=== PATIENT | female | born 1995 | race Caucasian/White ===

== ENCOUNTER 2024-01-20 13:28 | Emergency (ER) | payer OTHER, SELFPAY ==
[2024-01-20 13:29] VITALS: BP 156/81; PULSE 86; RESP 14; TEMP 36.2; O2SAT 99; BMI 45.7
--- NOTE | 2024-01-20 13:45 | EDS_ITS ---
HPI History of Present Illness Chief Complaint: Complaint Narrative Narrative: Patient is a 28-year-old female who is 29 weeks is complaining of painful urination. Patient started having symptoms yesterday of urinary frequency, urgency, no burning. Patient had intermittent vague right lower back pain as well yesterday and today. Patient has no history of kidney stones. Patient has no fever or chills. Patient is approximately 17 weeks . Patient has no vaginal bleeding, discharge or odors. Patient has no other acute complaints at this time. Patient is taking vitamins. Patient is a G1, P0. Patient has an appointment with her MOLECULAR BIOLOGIST in 2 weeks. No abdominal pain, nausea, vomiting, or any other acute complaints. PFSH PFSH Medical History no medical history Home Medications aspirin 81 mg tablet,delayed release 81 mg PO DAILY 01/20/24 [History Last Taken Unknown] magnesium 200 mg tablet 200 mg PO DAILY 01/20/24 [History Last Taken Unknown] multivitamin no.47-iron fum 27 mg-folate no.1 1 mg-dha 300 mg capsule (PNV-DHA) 1 cap PO DAILY 01/20/24 [History Last Taken Unknown] nitrofurantoin monohydrate/macrocrystals 100 mg capsule 100 mg PO Q12 #14 CAPSULES 01/20/24 [Rx Last Taken Unknown] ondansetron 4 mg disintegrating tablet 4 mg PO Q8H PRN PRN Nausea #10 tabs 01/20/24 [Rx Last Taken Unknown] Allergy/AdvReac Type Severity Reaction Status Date / Time No Known Allergies Allergy Verified 01/20/24 13:32 Social History Smoking Status: Never smoker ROS ROS ED ROS Narrative REVIEW OF SYSTEMS: Unless otherwise stated in this report the patient's positive and negative responses for review of systems for constitutional, eyes, ENT, cardiovascular, respiratory, gastrointestinal, neurological, , musculoskeletal, and integument systems and related systems to the presenting problem are either stated in the history of present illness or were not pertinent or were negative for the symptoms and/or complaints related to the presenting medical problem. EXAM Physical Exam Narrative Exam Narrative: Vital signs reviewed and patient is not hypoxic. General: The patient appears well and in no apparent distress. Patient is resting comfortably on cart. Not toxic, lethargic, or listless. Skin: Warm, dry, no pallor noted. There is no rash noted. Head: Normocephalic, atraumatic Eye: Normal conjunctiva, no drainage, EOMI. PERRL. Ears, Nose, Mouth, and Throat: oral mucosa is moist. Nares patent. Mouth without vesicles. Cardiovascular: Regular Rate and Rhythm, no murmurs, gallops, or rubs Respiratory: Patient is in no distress, no accessory muscle use, lungs are clear to auscultation, no wheezing, rales or rhonchi Back: non-tender, no CVA tenderness bilaterally to percussion. NO CTLS midline or paraspinal tenderness to palpation. No flank pain bilateral. GI: Soft, obese, no suprapubic tenderness palpation, no flank pain bilateral, no peritoneal signs, otherwise no tenderness to palpation, no masses appreciated. No rebound, guarding, or rigidity noted. Musculoskeletal: The patient has full range of motion of all extremities and joints with no difficulty. Patient has no motor, no sensory deficits. Neurological: A&O x4, normal speech, no focal neurological deficits. Psychiatric: Cooperative Const Vital Signs: 01/20/24 13:29 Temperature 97.1 F L Temperature Source Temporal Pulse Rate 86 Respiratory Rate 14 Blood Pressure 156/81 H Blood Pressure Mean 106 Pulse Ox 99 Oxygen Delivery Method Room Air MDM MDM MDM Narrative Medical decision making narrative: Several nurses attempted to find heart tones, they were unable to. Procedure note: Bedside abdominal ultrasound I did perform a bedside ultrasound by myself, activity was noted, there was good movement of the fetus as well. This was done with the patient and the father of the baby at bedside as well. heart activity was shown to them along with movement. They understand this is not an official ultrasound, they are following up with their MOLECULAR BIOLOGIST in 2 weeks for official ultrasound. Patient has evidence of urinary tract infection. Patient was given her first dose of Macrobid. Patient use Tylenol as needed for pain. Patient increase fluids. Cranberry juice was discussed at bedside as well. No questions at discharge. Lab Data Labs: Laboratory Results - last 24 hr 01/20/24 14:15 Urine Color Yellow Urine Clarity Clear Urine pH 7.0 Ur Specific [place] 1.010 Urine Protein 15 H Urine Glucose (UA) Normal Urine Ketones 150 A* Urine Occult Blood 25 H Urine Nitrite Positive H Urine Bilirubin Negative Urine Urobilinogen Normal Ur Leukocyte Esterase 500 H Urine RBC 0 SEEN Urine WBC 10-25 SEEN Ur Squamous Epith Cells 0-5 SEEN Urine Bacteria 2+ Urine Mucus 0 SEEN Discharge Plan Triage Chief Complaint: Complaint ED Provider: Hector Mehta Dx/Rx/DC Orders Clinical Impression: UTI (urinary tract infection), Instructions: Urinary Tract Infections in Women, ED Prescriptions: New ondansetron [ondansetron] 4 mg tablet,disintegrating 4 mg PO Q8H PRN PRN (Reason: Nausea) Qty: 10 0RF nitrofurantoin monohyd/m-cryst [nitrofurantoin monohyd/m-cryst] 100 mg capsule 100 mg PO Q12 Qty: 14 0RF No Action magnesium 200 mg tablet 200 mg PO DAILY aspirin 81 mg tablet,delayed release (DR/EC) 81 mg PO DAILY PNV-DHA 27 mg iron-1 mg -300 mg capsule 1 cap PO DAILY Primary Care Provider: Care Physician,No Primary Referrals: Care Physician,No Primary [Primary Care Provider] - Activity Restrictions/Additional Instructions: Increase fluids. Take your second dose of Macrobid tonight before bedtime. Use Tylenol if needed for pain. Follow-up with your MOLECULAR BIOLOGIST, continue taking vitamins. Disposition Disposition: Home, Self Care
[2024-01-20 14:21] LABS: Mucous, Urine 0 SEEN /hpf (<or=2+); Red Blood Cells-Urine 0 SEEN /hpf (0-5)
[2024-01-20 14:35] LABS: Color, Urine Yellow (Yellow); Glucose, Dipstick Normal (Normal); Leukocyte Esterase-Dipstick 500 /ul (Negative); Nitrite-Dipstick Positive (Negative); Occult Blood-Urine 25 /ul (Negative); Protein-Dipstick 15 mg/dl (Negative); Urine Bilirubin Dipstick Negative (Negative); Urine Clarity Clear (Clear); Urine Urobilinogen Normal (Normal)
[2024-01-20 14:44] LABS: Ketone-Dipstick 150 mg/dl (Negative)
[2024-01-20 14:50] LABS: Bacteria 2+ /hpf (None Seen); Squamous Epithelial Cells - UA 0-5 SEEN /hpf (5-10); White Blood Cells 10-25 SEEN /hpf (0-5)
[2024-01-20 15:29] VITALS: BP 132/77; BP 135/80; PULSE 64; PULSE 76; RESP 18; O2SAT 95; O2SAT 97
[2024-01-20] MEDS: Nitrofurantoin Macrocrystals 100 MG Capsule PO (15:46)
[2024-01-20 15:51] VITALS: BP 132/77; PULSE 76; RESP 18; TEMP 37.2; O2SAT 95
== END 2024-01-20 16:27 | disposition home or self-care (01) ==
PROVIDERS: Emergency Provider Emergency Medicine; Visit Provider Emergency Medicine
DX: O23.43 Unspecified infection of urinary tract in pregnancy, third trimester (principal); R30.9 Painful micturition, unspecified; Z3A.29 29 weeks gestation of pregnancy; Z79.82 Long term (current) use of aspirin
CPT/HCPCS: 81001; 99282

== ENCOUNTER 2024-05-31 20:20 | Outpatient (CLI) | payer OTHER, SELFPAY ==
[2024-05-31] VITALS (10 sets, daily range): BP systolic 138–143; BP diastolic 83–92; PULSE 109–147; RESP 16; TEMP 36.2; O2SAT 93–98; BMI 48.2
[2024-05-31 21:06] LABS: Color, Urine Yellow (Yellow); Glucose, Dipstick Normal (Normal); Leukocyte Esterase-Dipstick 500 /ul (Negative); Nitrite-Dipstick Negative (Negative); Occult Blood-Urine 250 /ul (Negative); Protein-Dipstick 500 mg/dl (Negative); Urine Bilirubin Dipstick Negative (Negative); Urine Clarity Cloudy (Clear); Urine Urobilinogen Normal (Normal)
[2024-05-31 21:10] LABS: Ketone-Dipstick 150 mg/dl (Negative)
[2024-05-31] MEDS: Lactated Ringers 500 ML IV.SOLN. 1000 ML IV (21:11)
--- NOTE | 2024-05-31 21:23 | OB.TRI.NOTE ---
HPI - General General Date of Service: 05/31/24 Chief Complaint: cramping and pressure HPI Narrative LEIGHA LISA, is a 28 F who presents with cramping and pressure. Was sick all day yesterday with nausea and vomiting. Possible LOF Maternal Data Information Final FERDINAND: 06/26/24 Gestational age: 36+2 PFSH PFSH Home Medications ?Medication ?Instructions ?Recorded ?Last Taken ?Type aspirin 81 mg tablet,delayed 81 mg PO DAILY 01/20/24 Unknown History release magnesium 200 mg tablet 200 mg PO DAILY 01/20/24 Unknown History multivitamin no.47-iron fum 27 1 cap PO DAILY 01/20/24 Unknown History mg-folate no.1 1 mg-dha 300 mg capsule (PNV-DHA) Allergy/AdvReac Type Severity Reaction Status Date / Time No Known Allergies Allergy Verified 05/31/24 20:43 Social History Smoking Status: Never smoker History 2 Elective abortions Hx Para 0 Spontaneous abortions Hx # Term Pregnancies Ectopic pregnancies Hx # Pregnancies Multiple births # of living children NST FHR Rate Baby A Baseline: 140 Variability:: Moderate Accelerations:: 15 x 15 Decelerations:: None NST Reactive:: Yes FHR Category:: Category I Uterine Activity:: intermittent Assessment & Plan (1) Dehydration during : PLAN: IVF hydration (2) 36 weeks gestation of : (3) High blood pressure affecting , antepartum: PLAN: Labs sent and normal Urine with blood. No pr/cr could be completed. Follow up for BP check next week PLAN: Plan Need BP check in office. HR improved after IVF. Urine culture pending.
[2024-05-31 21:38] LABS: Absolute Lymphocyte Count 1.41 X10^3/uL (0.83-4.51); Absolute Neutrophil Count 12.4 X10^3/uL (2.0-7.7); Basophil# 0.04 X10^3/uL; Basophil% 0.3 % (0-1); Eosinophil# 0.01 X10^3/uL; Eosinophils% 0.1 % (0-5); Hematocrit 36.6 % (37-47); Hemoglobin 11.8 g/dL (12.0-15.0); Lymphocyte # 1.41 X10^3/ul (0.83-4.51); Lymphocyte % 9.6 % (19-41); Mean Corp Hgb Conc 32.2 g/dL (32-36); Mean Corpuscular Hgb 26.5 pg (27.0-32.0); Mean Corpuscular Volume 82.1 fL (81-99); Mean Platelet Vol. 10.9 fl (6.2-12.0); Monocyte# 0.77 X10^3/uL; Monocyte% 5.2 % (0-10); NRBC Flagged by Analyzer 0 % (0-5); Neutrophil # 12.42 X10^3/uL (2.7-7.7); Neutrophil % 84.3 % (47-70); Platelet Count 246 K/mm3 (150-450); RBC Distribution Width CV 14.8 % (11.6-14.6); Red Blood Count 4.46 M/mm3 (4.2-5.4); White Blood Count 14.7 K/mm3 (4.4-11.0)
[2024-05-31 21:48] LABS: ROM Internal Control Test YES-OK TO RESULT pt. (Internal QC)
[2024-05-31 21:49] LABS: ROM Patient Test Negative (Negative); Record Kit Lot#, ROM+ K1866
[2024-05-31 21:59] LABS: ALB/GLOB Ratio 0.6 RATIO (0.9-2.4); AST(SGOT) 11 U/L (15-37); Alanine Aminotransfer ALT/SGPT 19 U/L (13-56); Albumin, Serum 2.8 g/dL (3.2-5.0); Alkaline Phosphatase 188 U/L (45-117); Anion Gap 13 (5-15); BUN 6 mg/dL (7-18); BUN/Creat Ratio 10.4 RATIO (10-20); Calcium,Total 9.1 mg/dL (8.5-10.1); Chloride 104 mmol/L (98-107); Creatinine, Serum 0.58 mg/dL (0.55-1.02); EST Glomerular Filtration Rate 130 mL/min (>60); Est Glom Filt Rate - Afr Amer 158 mL/min (>60); Estimated Creatinine Clearance 182.53 ml/min; Globulin 4.6 g/dL (2.2-4.2); Glucose 92 mg/dL (74-106); LDH 155 U/L (84-246); Potassium 3.6 mmol/L (3.5-5.1); Protein, Total 7.4 g/dL (6.4-8.2); Sodium Level 136 mmol/L (136-145)
== END 2024-05-31 22:25 | disposition home or self-care (01) ==
LOC: WPOUT 20:29 → WP 20:29
PROVIDERS: Visit Provider Obstetrics & Gynecology
DX: O99.283 Endocrine, nutritional and metabolic diseases complicating pregnancy, third trimester (principal); E86.0 Dehydration; Z3A.36 36 weeks gestation of pregnancy; O16.3 Unspecified maternal hypertension, third trimester
CPT/HCPCS: 36415; 59025; 59050; 80053; 81002; 83615; 84112; 85025; 87086; 87088; 87186; 99221; J7120; G0378

== ENCOUNTER 2024-06-10 10:00 | Outpatient (CLI) | payer OTHER, SELFPAY ==
[2024-06-10 10:23] VITALS: BMI 49.6
--- NOTE | 2024-06-10 13:31 | OB.TRI.NOTE ---
HPI - General General Date of Admission: 06/10/24 Date of Service: 06/10/24 Chief Complaint: NST HPI Narrative LEIGHA LISA, is a 28 F who presents for NST. Offers no complaints. PFSH PFSH Home Medications ?Medication ?Instructions ?Recorded ?Last Taken ?Type aspirin 81 mg tablet,delayed 81 mg PO DAILY 01/20/24 Unknown History release magnesium 200 mg tablet 200 mg PO DAILY 01/20/24 Unknown History multivitamin no.47-iron fum 27 1 cap PO DAILY 01/20/24 Unknown History mg-folate no.1 1 mg-dha 300 mg capsule (PNV-DHA) Allergy/AdvReac Type Severity Reaction Status Date / Time No Known Allergies Allergy Verified 05/31/24 20:43 Social History Smoking Status: Never smoker History 2 Elective abortions Hx Para 0 Spontaneous abortions Hx # Term Pregnancies Ectopic pregnancies Hx # Pregnancies Multiple births # of living children NST FHR Rate Baby A Baseline: 140 Variability:: Moderate Accelerations:: 15 x 15 Decelerations:: None NST Reactive:: Yes FHR Category:: Category I Uterine Activity:: none Assessment & Plan (1) 37 weeks gestation of : (2) Obesity affecting : PLAN: NST reviewed and reactive
== END 2024-06-10 10:51 | disposition home or self-care (01) ==
LOC: OBT 10:06 → WP 10:07
PROVIDERS: Visit Provider Obstetrics & Gynecology
DX: O99.213 Obesity complicating pregnancy, third trimester (principal); Z3A.37 37 weeks gestation of pregnancy
CPT/HCPCS: 59025

== ENCOUNTER 2024-06-23 17:10 | Inpatient (IN) | payer OTHER, SELFPAY ==
[2024-06-10 10:16] VITALS: BP 124/76; PULSE 90; RESP 15; TEMP 36.8; O2SAT 97
[2024-06-23 17:30] VITALS: BP 130/77; PULSE 112; RESP 16; TEMP 37; O2SAT 96
[2024-06-23 17:35] VITALS: BMI 49.8
[2024-06-23 18:03] LABS: Absolute Lymphocyte Count 1.43 X10^3/uL (0.83-4.51); Absolute Neutrophil Count 7.2 X10^3/uL (2.0-7.7); Basophil# 0.02 X10^3/uL; Basophil% 0.2 % (0-1); Eosinophil# 0.03 X10^3/uL; Eosinophils% 0.3 % (0-5); Hematocrit 35.4 % (37-47); Hemoglobin 11.4 g/dL (12.0-15.0); Lymphocyte # 1.43 X10^3/ul (0.83-4.51); Lymphocyte % 15.6 % (19-41); Mean Corp Hgb Conc 32.2 g/dL (32-36); Mean Corpuscular Hgb 26.6 pg (27.0-32.0); Mean Corpuscular Volume 82.7 fL (81-99); Mean Platelet Vol. 11.2 fl (6.2-12.0); Monocyte# 0.46 X10^3/uL; NRBC Flagged by Analyzer 0 % (0-5); Neutrophil # 7.21 X10^3/uL (2.7-7.7); Neutrophil % 78.6 % (47-70); Platelet Count 247 K/mm3 (150-450); RBC Distribution Width CV 14.9 % (11.6-14.6); RBC Distribution Width SD 44.6 fl (35.1-43.9); Red Blood Count 4.28 M/mm3 (4.2-5.4); White Blood Count 9.2 K/mm3 (4.4-11.0)
[2024-06-23] MEDS: miSOPROStol 25 MCG TABLET PO (18:03)
[2024-06-23] MEDS: 0.9% Saline Lock 10 ML Syringe IV (18:03)
[2024-06-23 18:43] LABS: Syphilis Antibodies Non-reactive
[2024-06-23 19:13] VITALS: BP 125/80; PULSE 104; RESP 16; TEMP 36.6; O2SAT 96
[2024-06-23] MEDS: 0.9% Normal Saline Single 100 ML IV.SOLN. INTRA-UTER (19:37)
--- NOTE | 2024-06-23 19:38 | HP.PCM.OB_ITS ---
HPI - General General Date of Admission: 06/23/24 HPI Narrative LEIGHA LISA, is a 28 F who presents at 39w4d for induction of labor due to obesity. Maternal Data Information FERDINAND Calculator Estimated Delivery Date Method Current WG Current Estimate 06/26/24 Manual 39w 4d [facility] Medical History (Updated 06/23/24 @ 19:42 by Eun Cao CNM) Asperger syndrome Recurrent UTI Home Medications ?Medication ?Instructions ?Recorded ?Last Taken ?Type aspirin 81 mg tablet,delayed 81 mg PO DAILY 01/20/24 Unknown History release magnesium 200 mg tablet 400 mg PO DAILY 01/20/24 Unknown History multivitamin no.47-iron fum 27 1 cap PO DAILY 01/20/24 Unknown History mg-folate no.1 1 mg-dha 300 mg capsule (PNV-DHA) Allergy/AdvReac Type Severity Reaction Status Date / Time No Known Allergies Allergy Verified 06/23/24 17:33 Surgical History [place] teeth extracted Social History Smoking Status: Never smoker History 2 Elective abortions Hx Para 0 Spontaneous abortions Hx # Term Pregnancies Ectopic pregnancies Hx # Pregnancies Multiple births # of living children NST FHR Rate Baby A Baseline: 155 Variability:: Moderate Accelerations:: 15 x 15 Decelerations:: None FHR Category:: Category I Uterine Activity:: Every 2-4 minutes, mild ROS Constitutional Constitutional: Reports systems reviewed and no addt'l complaints, except as documented; Denies headache(s) Eyes Eyes: Denies acute decrease in peripheral vision, blurry vision or change in vision ENT HEENT: Reports systems reviewed and no addt'l complaints, except as documented Cardiovascular Cardiovascular: Denies chest pain or dizziness Respiratory/Chest Respiratory/Chest: Denies cough, dyspnea, dyspnea on exertion, shortness of breath at rest or shortness of breath with exertion Gastrointestinal Gastrointestinal: Denies abdominal pain, diarrhea, nausea or vomiting Genitourinary Genitourinary: Denies abdominal discomfort Musculoskeletal Musculoskeletal: Denies limited range of motion Integumentary Integumentary: Reports systems reviewed and no addt'l complaints, except as documented Neurologic Neurologic: Reports systems reviewed and no addt'l complaints, except as documented Psychiatric Psychiatric: Reports systems reviewed and no addt'l complaints, except as documented Endocrine Endocrinology: Reports systems reviewed and no addt'l complaints, except as documented Hematologic/Lymphatic Hematologic/Lymphatic: Reports systems reviewed and no addt'l complaints, except as documented Allergic/Immunologic Allergic/Immunologic: Reports systems reviewed and no addt'l complaints, except as documented Vital Signs Vital Signs Vital Signs: 06/23/24 17:30 06/23/24 17:30 06/23/24 17:30 Temperature Temperature Source Temporal Pulse Rate 112 H Respiratory Rate Blood Pressure 130/77 H BP Systolic 130 BP Diastolic 77 Pulse Ox 06/23/24 17:30 06/23/24 17:30 06/23/24 17:30 Temperature 98.6 F Temperature Source Pulse Rate Respiratory Rate 16 Blood Pressure BP Systolic BP Diastolic Pulse Ox 96 06/23/24 19:13 06/23/24 19:13 06/23/24 19:13 Temperature Temperature Source Pulse Rate 104 H Respiratory Rate Blood Pressure 125/80 H BP Systolic 125 BP Diastolic 80 Pulse Ox 96 06/23/24 19:13 06/23/24 19:13 06/23/24 19:13 Temperature 97.9 F Temperature Source Temporal Pulse Rate Respiratory Rate 16 Blood Pressure BP Systolic BP Diastolic Pulse Ox Weight Weight: 281 lb 2 oz Body Mass Index (BMI) 49.8 Physical Exam Const alert and oriented x3 General Appearance: cooperative Orientation / Consciousness: awake, oriented to person, oriented to place and oriented to time Exam Limitations: no limitations HEENT normocephalic Head and Scalp: normal to inspection, normocephalic and atraumatic Face and Sinus: normal facial exam Eyes General Eye: normal appearance of both eyes Neck full ROM Chest Chest: symmetrical chest wall rise Resp normal respiratory effort and normal air movement Auscultation: clear to auscultation bilaterally Cardio regular rate, regular rhythm, S1 normal heart sound, S2 normal heart sound, no murmurs, no rub, no gallops and no clicks GI normal to inspection, nondistended, normoactive bowel sounds and non-tender appearance of the vagina normal Narrative: 2/60%/-3. Solis inserted through cervix, 30ml NS instilled, tolerated well Bladder / Kidney Exam: no CVA tenderness Back/Spine normal ROM Extremity normal to inspection and full ROM Skin no rashes or lesions noted Neuro oriented x3, CN's II-XII intact bilaterally and moves all extremities Sensorium / Orientation: awake, alert and oriented to person Motor Exam: clonus absent Deep Tendon Reflexes: Rt Patellar (L4): 2+ and Lt Patellar (L4): 2+ Labs Labs Labs: Blood Type O POSITIVE Antibody Screen NEGATIVE Hct 35.4 % (37-47) L Hgb 11.4 g/dL (12.0-15.0) L Syphilis Total Ab Non-reactive GBS negative HIV negative HBsAG negative Hep C negative RPR negative Rubella immune O positive 1hr GCT negative Assessment & Plan (1) Obesity affecting : (2) 39 weeks gestation of : (3) Encounter for induction of labor: PLAN: Plan 1) Admit to labor and delivery 2) Routine labs 3) Continuous EFM 4) Pain management upon request 5) cytotec and solis for cervical ripening and then pitocin 6) collaborative physician and notified of patient status, above assessment, and plan.
[2024-06-23 20:00] VITALS: BP 128/59; PULSE 102
[2024-06-24] VITALS (31 sets, daily range): BP systolic 118–158; BP diastolic 56–91; PULSE 78–187; RESP 16–20; TEMP 36–38.2; O2SAT 83–100
[2024-06-24] MEDS: Lactated Ringers 1,000 ML 200 ML IV (00:29)
[2024-06-24] MEDS: Oxytocin 15 Units/NS 250ml 15 UNITS/250 ML IV.SOLN 2 UNITS IV (00:29)
[2024-06-24] MEDS: Lactated Ringers 1,000 ML 50 ML IV (06:28)
--- NOTE | 2024-06-24 08:50 | PCM.PN.BLA ---
Progress Note Patient comfortable. Feeling some cramping with contractions. Cervix is 470-2, head well applied, soft and anterior. Artificial rupture membranes with large amount of clear fluid. FHTS category 1. Titrate Pitocin as needed. May have routine pain control measures as desired and as needed. Estimated weight is less than 5000 g and pelvis clinically adequate to expect vaginal delivery.
[2024-06-24] MEDS: Ondansetron 4 MG/2 ML Vial IV (11:06)
[2024-06-24] MEDS: fentaNYL 100 MCG/2 ML Ampul IV (13:48)
[2024-06-24] MEDS: LACTATED RINGERS 500 ML 999 ML IV (14:43)
[2024-06-24] MEDS: Oxytocin 15 Units/NS 250ml 15 UNITS/250 ML IV.SOLN 334 UNITS IV (16:45)
[2024-06-24] MEDS: Lidocaine 1% (20 ml mdv) 20 ML Vial INFILT (16:50)
--- NOTE | 2024-06-24 17:14 | EX.PCM.OBRPT ---
Maternal Data Information FERDINAND Calculator Estimated Delivery Date Method Current WG Current Estimate 06/26/24 Manual 39w 5d Final FERDINAND: 06/26/24 Gestational age: 39 5/7 Vaginal Delivery Maternal Presentation Maternal Presentation: Medically Indicated Induction Type of Induction: Pitocin, [place] Bulb, Amniotomy and Cytotec Medical Reason for Induction: - (obesity - BMI 49) Operative Information Date of Procedure: 06/24/24 Pre-Operative Diagnosis: labor Post-Operative Diagnosis: same Surgery / Procedure Performed: Spontaneous Vaginal Delivery Type of Anesthesia: Local with 1% Lidocaine (15 cc) Drain: - (none) Estimated Blood Loss: 300 Time of Delivery: 16:41 Findings Description of Procedure: A vigorous male infant was delivered [place] over an intact perineum. The remainder the was delivered with maternal pushing and gentle traction only in less than 15 seconds. The Pitocin infusion was initiated for active management of the third stage. The cord was clamped and cut after approximately 30 seconds. The was then transferred to the warmer for evaluation because of the terminal meconium. The infant was attended to by the waiting nursing staff. The placenta was delivered spontaneously and intact. The cervix and vagina were intact. The vaginal laceration was just to the right of the midline and was approximately 2 cm long and 1 cm deep. There is some active bleeding from this. It was oversewn with 2-0 Vicryl suture in a running locked fashion and hemostasis was noted. Sponge and needle counts were correct. A vaginal sweep was completed by me. Presentation: VIKA Amniotic Membrane Rupture Type: Spontaneous Amniotic Fluid Description: Clear (thick meconium at delivery) Placental Delivery Description: Spontaneous Placenta Disposition: [facility] Cord Vessel Description: 3 Vessels Cord Entanglement: None A Gender: Male (Hafsa) (1 minute): 9 (5 minute): 9 Delayed Cord Clamping: Yes Post Vaginal Delivery Medications Given After Delivery: IV Pitocin Episiotomy Description: None Laceration: 1st degree (vaginal ) Complication Complications: None
[2024-06-24] MEDS: Oxytocin 15 Units/NS 250ml 15 UNITS/250 ML IV.SOLN 83 UNITS IV (17:16)
[2024-06-24] MEDS: Ketorolac 30 MG/ML Syringe IV (18:32)
[2024-06-24] MEDS: 0.9% Saline Lock 10 ML Syringe IV (20:20)
[2024-06-25] VITALS (9 sets, daily range): BP systolic 100–127; BP diastolic 54–82; PULSE 107–170; RESP 16–18; TEMP 36.2–39.3; O2SAT 98–100
[2024-06-25] MEDS: WATER IVPB (02:08)
[2024-06-25] MEDS: GENTAMICIN IVPB (02:08)
[2024-06-25] MEDS: DEXTROSE 5% IVPB (02:08)
[2024-06-25] MEDS: 0.9% Saline Lock 10 ML Syringe IV ×2 (02:10→09:36)
[2024-06-25 02:15] LABS: Absolute Lymphocyte Count 0.53 X10^3/uL (0.83-4.51); Absolute Neutrophil Count 18.4 X10^3/uL (2.0-7.7); Basophil# 0.06 X10^3/uL; Basophil% 0.3 % (0-1); Hematocrit 29.7 % (37-47); Hemoglobin 9.7 g/dL (12.0-15.0); Lymphocyte # 0.53 X10^3/ul (0.83-4.51); Lymphocyte % 2.6 % (19-41); Mean Corp Hgb Conc 32.7 g/dL (32-36); Mean Corpuscular Hgb 26.6 pg (27.0-32.0); Mean Corpuscular Volume 81.4 fL (81-99); Mean Platelet Vol. 10.7 fl (6.2-12.0); Monocyte# 1.25 X10^3/uL; Monocyte% 6.2 % (0-10); NRBC Flagged by Analyzer 0 % (0-5); Neutrophil # 18.37 X10^3/uL (2.7-7.7); Neutrophil % 90.4 % (47-70); POSITIVE DIFFERENTIAL YES; Platelet Count 193 K/mm3 (150-450); RBC Distribution Width CV 14.9 % (11.6-14.6); RBC Distribution Width SD 43.9 fl (35.1-43.9); Red Blood Count 3.65 M/mm3 (4.2-5.4); White Blood Count 20.3 K/mm3 (4.4-11.0)
[2024-06-25] MEDS: Acetaminophen 500 MG Tablet 1000 MG PO ×3 (02:42→21:10)
[2024-06-25] MEDS: Clindamycin 900 MG/50 ML BAG 75 MG IV ×3 (02:43→18:03)
--- NOTE | 2024-06-25 15:27 | NURSING ---
1330 - Debbie Sanchez RN notified of patients temp of 100.3 and heart rate of 139. Pt denies any dizziness, chest pain, or blurred vision. Will continue to monitor.
--- NOTE | 2024-06-25 15:30 | PCM.PN.OB ---
Subjective Subjective Patient denies complaints. Objective Data Objective Data Vital Signs: Vital Signs Temp Pulse Resp BP Pulse Ox O2 Del Method 100.3 F H 139 H 18 126/63 H 100 Room Air 06/25/24 13:26 06/25/24 13:26 06/25/24 13:26 06/25/24 13:26 06/25/24 13:26 06/25/24 13:26 Oxygen Delivery Method Room Air Weight: 281 lb 2 oz Body Mass Index (BMI) 49.8 Intake & Output: Intake and Output for Last 24 Hours 06/23/24 06/24/24 06/25/24 23:59 23:59 23:59 Intake Total 2804.13 / 2804.13 152 / 152 Output Total 1750 / 1750 Balance 1054.13 / 1054.13 152 / 152 Lab / Micro Data 06/25/24 02:05 Labs: Laboratory Results - last 24 hr 06/25/24 02:05: WBC 20.3 H, RBC 3.65 L, Hgb 9.7 L, Hct 29.7 L, MCV 81.4, MCH 26.6 L, MCHC 32.7, RDW Std Deviation 43.9, RDW Coeff of [place] 14.9 H, Plt Count 193, MPV 10.7, Immature Gran % (Auto) 0.500, Neut % (Auto) 90.4 H, Lymph % (Auto) 2.6 L, [place] % (Auto) 6.2, Eos % (Auto) 0.0, Baso % (Auto) 0.3, Absolute Neuts (auto) 18.4 H, Absolute Lymphs (auto) 0.53 L, Nucleated RBC % 0 Physical Exam Const alert, oriented x3 and no apparent distress HEENT normocephalic GI soft to palpation, non-tender and non-distended GI Narrative: fundus firm, mid & below umbilicus Extremity normal to inspection and no calf tenderness Assessment & Plan (1) (spontaneous vaginal delivery): (2) Fever: QUALIFIERS: Fever type: fever of unknown origin following delivery Qualified Code(s): O86.4 - Pyrexia of unknown origin following delivery PLAN: Plan ID - patient is AF. Continue antibiotics for 24 hours. Heme - HDS, CBC reviewed. ROutine care
--- NOTE | 2024-06-25 20:14 | NURSING ---
call to dr heck to update on pt vitals. pt not complaining of pain, oral temperature 102.2, BP 119/62, HR 133, 98% SP02, 18 RR. all atb are infused and last dose given at 1730. provider to call unit and speak with RN with further orders after looking into pt chart.
--- NOTE | 2024-06-25 20:30 | RAD_ITS ---
EXAM: XR CHEST, 2 VIEWS CLINICAL INDICATION: fever. TECHNIQUE: Frontal and lateral views of the chest. COMPARISON: No relevant prior studies available. FINDINGS: LUNGS AND PLEURAL SPACES: Unremarkable. No consolidation or edema. No pneumothorax. No effusion. HEART: Unremarkable. Cardiac silhouette not enlarged. MEDIASTINUM: Central airways and mediastinal contour are unremarkable. BONES/JOINTS: Unremarkable. No acute fracture. SOFT TISSUES: Unremarkable. RAD/Chest PA and Lateral IMPRESSION: No radiographic evidence of acute cardiopulmonary disease. Electronically Signed: Sid Michaels MD at 23:28 EDT ,
[2024-06-25 21:23] LABS: Absolute Lymphocyte Count 0.61 X10^3/uL (0.83-4.51); Absolute Neutrophil Count 17.7 X10^3/uL (2.0-7.7); Basophil# 0.03 X10^3/uL; Basophil% 0.2 % (0-1); Eosinophil# 0.04 X10^3/uL; Eosinophils% 0.2 % (0-5); Hematocrit 31.9 % (37-47); Hemoglobin 10.3 g/dL (12.0-15.0); Lymphocyte # 0.61 X10^3/ul (0.83-4.51); Lymphocyte % 3.2 % (19-41); Mean Corp Hgb Conc 32.3 g/dL (32-36); Mean Corpuscular Hgb 26.5 pg (27.0-32.0); Mean Corpuscular Volume 82.2 fL (81-99); Mean Platelet Vol. 10.9 fl (6.2-12.0); Monocyte# 0.84 X10^3/uL; Monocyte% 4.3 % (0-10); NRBC Flagged by Analyzer 0 % (0-5); Neutrophil # 17.71 X10^3/uL (2.7-7.7); Neutrophil % 91.5 % (47-70); Platelet Count 213 K/mm3 (150-450); RBC Distribution Width CV 15.1 % (11.6-14.6); RBC Distribution Width SD 45.1 fl (35.1-43.9); Red Blood Count 3.88 M/mm3 (4.2-5.4); White Blood Count 19.3 K/mm3 (4.4-11.0)
[2024-06-25 21:53] LABS: ALB/GLOB Ratio 0.5 RATIO (0.9-2.4); AST(SGOT) 24 U/L (15-37); Alanine Aminotransfer ALT/SGPT 18 U/L (13-56); Albumin, Serum 2.3 g/dL (3.2-5.0); Alkaline Phosphatase 157 U/L (45-117); Anion Gap 7 (5-15); BUN 10 mg/dL (7-18); BUN/Creat Ratio 13.5 RATIO (10-20); Calcium,Total 9.1 mg/dL (8.5-10.1); Chloride 107 mmol/L (98-107); Creatinine, Serum 0.74 mg/dL (0.55-1.02); EST Glomerular Filtration Rate 98 mL/min (>60); Est Glom Filt Rate - Afr Amer 119 mL/min (>60); Globulin 4.3 g/dL (2.2-4.2); Glucose 87 mg/dL (74-106); LDH 185 U/L (84-246); Protein, Total 6.6 g/dL (6.4-8.2); Sodium Level 136 mmol/L (136-145)
[2024-06-25 21:58] LABS: Lactic Acid 1.1 mmol/L (0.4-1.9)
[2024-06-25 23:19] LABS: Color, Urine Yellow (Yellow); Glucose, Dipstick Normal (Normal); Ketone-Dipstick 5 mg/dl (Negative); Leukocyte Esterase-Dipstick 500 /ul (Negative); Nitrite-Dipstick Negative (Negative); Occult Blood-Urine 250 /ul (Negative); Protein-Dipstick 30 mg/dl (Negative); Urine Bilirubin Dipstick Negative (Negative); Urine Clarity Cloudy (Clear); Urine Urobilinogen Normal (Normal)
[2024-06-25] MEDS: NORMAL SALINE 0.9% IV (23:38)
[2024-06-25] MEDS: AMPICILLIN IV (23:38)
[2024-06-26] VITALS (7 sets, daily range): BP systolic 115–137; BP diastolic 77–100; PULSE 91–138; RESP 16–17; TEMP 36.1–38.1; O2SAT 98–100
--- NOTE | 2024-06-26 01:01 | NURSING ---
call to provider to update on pt status. pt no longer warm to touuch, chest xray results read as unremarkable, no cardiopulmonary illness noted. UA results read to provider. provider said to continue with current plan of care.
[2024-06-26] MEDS: Clindamycin 900 MG/50 ML BAG 75 MG IV ×3 (01:40→18:44)
[2024-06-26] MEDS: DEXTROSE 5% IVPB (02:45)
[2024-06-26] MEDS: GENTAMICIN IVPB (02:45)
[2024-06-26] MEDS: WATER IVPB (02:45)
[2024-06-26] MEDS: NORMAL SALINE 0.9% IV ×3 (04:45→17:51)
[2024-06-26] MEDS: AMPICILLIN IV ×3 (04:45→17:51)
--- NOTE | 2024-06-26 08:22 | PCM.PROGNOTE ---
Subjective Subjective patient seen at bedside, doing well. Patient reports good pain control. lochia mild. denies CP, SOB, denies malodorous vaginal discharge, dysuria, sick contacts at home. pt reports was not feeling unwell prior to arrival on L&D. pt reports occasional chills. Objective Data Objective Data Vital Signs: Vital Signs Temp Pulse Resp BP Pulse Ox O2 Del Method 99 F 109 H 16 129/83 H 100 Room Air 06/26/24 02:49 06/26/24 01:36 06/26/24 01:36 06/26/24 01:36 06/26/24 01:36 06/26/24 01:36 Oxygen Delivery Method Room Air Weight: 127.516 kg Body Mass Index (BMI) 49.8 Intake & Output: Intake and Output for Last 24 Hours 06/24/24 06/25/24 06/26/24 23:59 23:59 23:59 Intake Total 2804.13 / 2804.13 202 / 202 302 / 302 Output Total 1750 / 1750 50 / 50 Balance 1054.13 / 1054.13 152 / 152 302 / 302 Lab / Micro Data 06/25/24 21:05 06/25/24 21:05 Labs: Laboratory Results - last 24 hr 06/25/24 21:05: WBC 19.3 H, RBC 3.88 L, Hgb 10.3 L, Hct 31.9 L, MCV 82.2, MCH 26.5 L, MCHC 32.3, RDW Std Deviation 45.1 H, RDW Coeff of [place] 15.1 H, Plt Count 213, MPV 10.9, Immature Gran % (Auto) 0.600, Neut % (Auto) 91.5 H, Lymph % (Auto) 3.2 L, [place] % (Auto) 4.3, Eos % (Auto) 0.2, Baso % (Auto) 0.2, Absolute Neuts (auto) 17.7 H, Absolute Lymphs (auto) 0.61 L, Nucleated RBC % 0, Sodium 136, Potassium 4.0, Chloride 107, Carbon Dioxide 22.0, Anion Gap 7, BUN 10, Creatinine 0.74, Estim Creat Clear Calc 146.00, Est GFR (MDRD) Af Amer 119, Est GFR (MDRD) Non-Af 98, BUN/Creatinine Ratio 13.5, Glucose 87, Calcium 9.1, Total Bilirubin 0.40, AST 24, ALT 18, Alkaline Phosphatase 157 H, Lactate Dehydrogenase 185, Total Protein 6.6, Albumin 2.3 L, Globulin 4.3 H, Albumin/Globulin Ratio 0.5 L 06/25/24 21:25: Lactic Acid 1.1 06/25/24 23:10: Urine Color Yellow, Urine Clarity Cloudy, Urine pH 6.0, Ur Specific [place] 1.010, Urine Protein 30 H, Urine Glucose (UA) Normal, Urine Ketones 5 H, Urine Occult Blood 250 H, Urine Nitrite Negative, Urine Bilirubin Negative, Urine Urobilinogen Normal, Ur Leukocyte Esterase 500 H Radiography Diagnostic Testing: Radiology Impression Chest X-Ray 06/25/24 20:30 IMPRESSION: No radiographic evidence of acute cardiopulmonary disease. Electronically Signed: Sid Michaels MD at 23:28 EDT Reading Location ID and State: [facility] / [place] Tel , Service support , Physical Exam Narrative Gen: female in NAD Abd: soft, non tender to palpation. Fundus firm. Const alert and oriented x3 General Appearance: cooperative HEENT normocephalic Neck General: normal visual inspection GI soft to palpation and non-distended GI Narrative: Fundus firm Extremity normal to inspection and no calf tenderness Skin no rashes or lesions noted Neuro oriented x3 and CN's II-XII intact bilaterally Psych mental status grossly normal Assessment & Plan Assessment/Plan (1) (spontaneous vaginal delivery): (2) Obesity affecting : QUALIFIERS: Trimester: third trimester Obesity type affecting : unspecified obesity Qualified Code(s): O99.213 - Obesity complicating , third trimester (3) fever: PLAN: Plan PPD#2 , fever of unknown origin- last fever 06/25/24 at 2000 Routine care pain mgmt ambulation continue Amp/Gent/Clinda urine culture pending, if spikes again- will need blood cultures CXR-negative reviewed with patient 24hrs fever free prior to dc home and before stopping abx. repeat cbc in am wbc elevated with neutrophils 91.5%
[2024-06-26] MEDS: 0.9% Saline Lock 10 ML Syringe IV ×4 (09:28→17:55)
[2024-06-26] MEDS: Ibuprofen 600 MG Tablet PO (10:58)
[2024-06-26] MEDS: Senna/Docusate Sodium 1 Tablet PO (10:58)
--- NOTE | 2024-06-26 15:24 | NURSING ---
student charting reviewed that is used for educational and learning purposes.
[2024-06-27] MEDS: 0.9% Saline Lock 10 ML Syringe IV ×5 (00:15→17:36)
[2024-06-27] MEDS: AMPICILLIN IV ×4 (00:16→18:19)
[2024-06-27] MEDS: NORMAL SALINE 0.9% IV ×4 (00:16→18:19)
[2024-06-27] MEDS: Acetaminophen 500 MG Tablet 1000 MG PO (00:16)
[2024-06-27] MEDS: Clindamycin 900 MG/50 ML BAG 75 MG IV ×3 (01:39→17:35)
[2024-06-27 01:42] VITALS: BP 123/69; PULSE 98; RESP 16; TEMP 36.4; O2SAT 96
[2024-06-27] MEDS: DEXTROSE 5% IVPB (04:03)
[2024-06-27] MEDS: GENTAMICIN IVPB (04:03)
[2024-06-27] MEDS: WATER IVPB (04:03)
[2024-06-27 06:20] VITALS: TEMP 36.4
[2024-06-27 06:39] LABS: Absolute Lymphocyte Count 0.98 X10^3/uL (0.83-4.51); Absolute Neutrophil Count 7.9 X10^3/uL (2.0-7.7); Basophil# 0.02 X10^3/uL; Basophil% 0.2 % (0-1); Eosinophil# 0.06 X10^3/uL; Eosinophils% 0.6 % (0-5); Hematocrit 32.8 % (37-47); Hemoglobin 10.4 g/dL (12.0-15.0); Lymphocyte # 0.98 X10^3/ul (0.83-4.51); Lymphocyte % 10.3 % (19-41); Mean Corp Hgb Conc 31.7 g/dL (32-36); Mean Corpuscular Hgb 26.3 pg (27.0-32.0); Mean Platelet Vol. 10.5 fl (6.2-12.0); Monocyte# 0.48 X10^3/uL; Monocyte% 5.1 % (0-10); NRBC Flagged by Analyzer 0 % (0-5); Neutrophil # 7.89 X10^3/uL (2.7-7.7); Neutrophil % 83.2 % (47-70); Platelet Count 217 K/mm3 (150-450); RBC Distribution Width SD 45.8 fl (35.1-43.9); Red Blood Count 3.95 M/mm3 (4.2-5.4); White Blood Count 9.5 K/mm3 (4.4-11.0)
--- NOTE | 2024-06-27 08:49 | CT_ITS ---
STUDY: CT ABDOMEN AND PELVIS WITH AND WITHOUT CONTRAST REASON FOR EXAM: Female, 28 years old. Post fever RADIATION DOSAGE (If Supplied By Facility): CTDIvol = ( 21.53 ) mGy, DLP = ( 3019.85 ) mGycm TECHNIQUE: Transaxial images were obtained from the dome of the diaphragm to the symphysis pubis without oral contrast. Gastrografin, 100ml IV Isovue 300 was administered. Sagittal and coronal images were reconstructed. Individualized dose optimization techniques were used for this CT. COMPARISON: None. FINDINGS: Minimal linear atelectasis at the left lung base. The visualized portions of the heart are within normal limits. Normal liver. Normal gallbladder and extrahepatic biliary system. Normal spleen. Normal pancreas. Normal bilateral adrenal glands. Normal right kidney. Normal left kidney. Normal visualized stomach. Normal small intestine. Normal colon. The appendix is visualized and appears normal. Normal abdominal aorta. Normal inferior vena cava. Normal retroperitoneum. Normal urinary bladder. Enlarged uterus in keeping with the deep state. Heterogeneous appearance of the endometrium. Small amount of air is seen within the endometrium. Clinical correlation recommended. Normal abdominal wall. Normal osseous structures. CT/CT Abd/Pelvis W/WO Contrast IMPRESSION: The uterus is enlarged with the recent state. Heterogeneous appearance of the endometrium. Small amount of air is seen within the endometrium. Clinical correlation recommended. Electronically Signed: Omar Lopez MD at 12:17 EDT ,
--- NOTE | 2024-06-27 08:53 | PCM.PN.CNM ---
Subjective Subjective Patient seen at bedside. Denies any pain. Ambulating and voiding without difficulty. Lochia decreasing. Objective Data Objective Data Vital Signs: Vital Signs Temp Pulse Resp BP Pulse Ox O2 Del Method 97.6 F L 98 16 123/69 H 96 Room Air 06/27/24 06:20 06/27/24 01:42 06/27/24 01:42 06/27/24 01:42 06/27/24 01:42 06/27/24 01:42 Oxygen Delivery Method Room Air Weight: 281 lb 2 oz Body Mass Index (BMI) 49.8 Intake & Output: Intake and Output for Last 24 Hours 06/25/24 06/26/24 06/27/24 23:59 23:59 23:59 Intake Total 202 / 202 602 / 602 302 / 302 Output Total 50 / 50 Balance 152 / 152 602 / 602 302 / 302 Lab / Micro Data 06/27/24 06:29 06/25/24 21:05 Labs: Laboratory Results - last 24 hr 06/27/24 06:29: WBC 9.5, RBC 3.95 L, Hgb 10.4 L, Hct 32.8 L, MCV 83.0, MCH 26.3 L, MCHC 31.7 L, RDW Std Deviation 45.8 H, RDW Coeff of Mariano 15.0 H, Plt Count 217, MPV 10.5, Immature Gran % (Auto) 0.600, Neut % (Auto) 83.2 H, Lymph % (Auto) 10.3 L, Jefferson % (Auto) 5.1, Eos % (Auto) 0.6, Baso % (Auto) 0.2, Absolute Neuts (auto) 7.9 H, Absolute Lymphs (auto) 0.98, Nucleated RBC % 0 ROS Eyes Eyes: Denies blurry vision, change in vision or spots in vision ENT HEENT: Denies dizziness or headache(s) Cardiovascular Cardiovascular: Denies abdominal pain, chest pain or dyspnea Respiratory/Chest Respiratory/Chest: Denies cough, dyspnea, shortness of breath at rest or shortness of breath with exertion Gastrointestinal Gastrointestinal: Denies abdominal pain, diarrhea or vomiting Genitourinary Genitourinary: Denies change in urinary stream, difficulty urinating or dysuria Musculoskeletal Musculoskeletal: Reports none Integumentary Integumentary: Denies rash Neurologic Neurologic: Denies dizziness, headache(s), memory loss or weakness Assessment & Plan (1) fever: (2) Fever: QUALIFIERS: Fever type: fever of unknown origin following delivery Qualified Code(s): O86.4 - Pyrexia of unknown origin following delivery (3) (spontaneous vaginal delivery): (4) Care and examination of lactating mother: PLAN: Plan S/P Post fevers Afebrile since last night at 2200 Dr[address] Elam ordered STAT CT SCAN W/WO contrast of pelvis Pain control Breast feeding support Continue close monitoring of patient
[2024-06-27 09:01] VITALS: BP 130/74; PULSE 94; RESP 18; TEMP 36.2; O2SAT 98
--- NOTE | 2024-06-27 09:41 | NURSING ---
student charting reviewed
--- NOTE | 2024-06-27 09:46 | NURSING ---
Contrast given to pt. to prep for Ct Scan, instructions were stated on how to drink it.
[2024-06-27 12:29] VITALS: BP 129/106; PULSE 107; RESP 16; TEMP 36.4; O2SAT 98
[2024-06-27 13:48] VITALS: BP 105/82; PULSE 102
[2024-06-27 20:15] VITALS: BP 120/71; PULSE 120; RESP 16; TEMP 37.3; O2SAT 96
[2024-06-28] MEDS: NORMAL SALINE 0.9% IV ×2 (00:45→07:42)
[2024-06-28] MEDS: Enoxaparin 40 MG/0.4 ML Syringe SC ×2 (00:45→09:15)
[2024-06-28] MEDS: AMPICILLIN IV ×2 (00:45→07:42)
[2024-06-28 01:04] VITALS: BP 128/76; PULSE 88; RESP 16; TEMP 36.9; O2SAT 98
[2024-06-28] MEDS: Clindamycin 900 MG/50 ML BAG 75 MG IV (01:25)
[2024-06-28] MEDS: WATER IVPB (05:14)
[2024-06-28] MEDS: DEXTROSE 5% IVPB (05:14)
[2024-06-28] MEDS: GENTAMICIN IVPB (05:14)
[2024-06-28 07:51] VITALS: BP 124/84; PULSE 93; RESP 16; TEMP 36.6; O2SAT 96
--- NOTE | 2024-06-28 08:47 | PCM.PN.OB ---
Subjective Subjective Feels good. No fever for over 24 hours. No pain. Breast feeding well. S/p 48 hour of antibiotics. Lovenox started this am. Objective Data Objective Data Vital Signs: Vital Signs Temp Pulse Resp BP Pulse Ox O2 Del Method 97.8 F 93 16 124/84 H 96 Room Air 06/28/24 07:51 06/28/24 07:51 06/28/24 07:51 06/28/24 07:51 06/28/24 07:51 06/28/24 07:51 Oxygen Delivery Method Room Air Weight: 127.516 kg Body Mass Index (BMI) 49.8 Intake & Output: Intake and Output for Last 24 Hours 06/26/24 06/27/24 06/28/24 23:59 23:59 23:59 Intake Total 602 / 602 602 / 602 Balance 602 / 602 602 / 602 Lab / Micro Data 06/27/24 06:29 06/25/24 21:05 Micro: Microbiology 06/25/24 23:10 Urine, Catheterized Urine Culture - Final Escherichia coli 06/26/24 23:23 Blood Culture (Wb) - Anticubital Left Blood Culture - Preliminary Radiography Diagnostic Testing: Radiology Impression Abdomen/Pelvis CT 06/27/24 08:49 IMPRESSION: The uterus is enlarged with the recent state. Heterogeneous appearance of the endometrium. Small amount of air is seen within the endometrium. Clinical correlation recommended. Electronically Signed: Omar Lopez MD at 12:17 EDT , ROS Constitutional Constitutional: Denies fatigue, fever(s) or malaise Eyes Eyes: Denies change in vision ENT HEENT: Denies dizziness or headache(s) Cardiovascular Cardiovascular: Denies chest pain, dyspnea or lightheadedness Respiratory/Chest Respiratory/Chest: Denies cough or dyspnea Gastrointestinal Gastrointestinal: Denies change in bowel habits Genitourinary Genitourinary: Denies burning urination or genital lesions Integumentary Integumentary: Denies rash Neurologic Neurologic: Denies confusion, dizziness, headache(s), numbness or weakness Physical Exam Const alert and no apparent distress Narrative: Fundus firm, below umbilicus. Assessment & Plan (1) (spontaneous vaginal delivery): (2) fever: PLAN: continue lovenox for one week. PLAN: Plan Discharge home. Lovenox for one. Week. Reviewed precautions
--- NOTE | 2024-06-28 08:49 | PCM.DC.SUM ---
Providers Date of Admission: 06/23/24 Primary Care Physician: No Primary Care Phys Reason For Visit: INDUCTION Diagnosis Discharge Diagnosis (1) (spontaneous vaginal delivery): Status: Acute Code(s): O80 - Encounter for full-term uncomplicated delivery (2) fever: Status: Acute Code(s): O86.4 - Pyrexia of unknown origin following delivery Plan: continue lovenox for one week. Plan Discharge home. Lovenox for one. Week. Reviewed precautions Medications at Discharge Home Medications magnesium 200 mg tablet 400 mg PO DAILY 01/20/24 multivitamin no.47-iron fum 27 mg-folate no.1 1 mg-dha 300 mg capsule (PNV-DHA) 1 cap PO DAILY 01/20/24 enoxaparin 40 mg/0.4 mL subcutaneous syringe 40 mg (0.4 mL) subcut BID 1 week #5.6 mL 06/28/24 Hospital Course Operations None Procedures None Summary of Care Provided Minutes Spent on Discharge: 25 Hospital Course: Delivered by but developed a fever of unknown origin. Negative imaging and labs. Triple antibiotics for 48 hours and lovenox started. Physical Exam Const alert and no apparent distress Narrative: Fundus firm, below umbilicus. Weight / BMI Weight Weight: 127.516 kg Body Mass Index (BMI) 49.8 ABG / Lab / Microbiology Data 06/27/24 06:29 06/25/24 21:05 Microbiology: Microbiology 06/25/24 23:10 Urine, Catheterized Urine Culture - Final Escherichia coli 06/26/24 23:23 Blood Culture (Wb) - Anticubital Left Blood Culture - Preliminary Radiography Diagnostic Testing: Radiology Impression Abdomen/Pelvis CT 06/27/24 08:49 IMPRESSION: The uterus is enlarged with the recent state. Heterogeneous appearance of the endometrium. Small amount of air is seen within the endometrium. Clinical correlation recommended. Electronically Signed: Omar Lopez MD at 12:17 EDT , D/C Instructions May resume sexual activity in: 6 weeks Please Follow Up With: Sarai Francis MD When: Follow up with our office in 1-2 and 6 weeks or as needed. [phone] Meaningful Use Info Meaningful Use Meaningful Use Diagnoses (Choose all that apply): None applicable Ischemic Stroke Statin Dosing Therapy Reference: STATIN DOSE THERAPY REFERENCE: * Patients > 75 years receive moderate or high dose statin therapy. * Patients 75 years or YOUNGER should receive HIGH intensity statin dose unless contraindicated. You will be required to document reason for non-treatment if statin daily dose does not meet guidelines. HIGH DOSE STATIN THERAPY DAILY Atorvastatin > than or = to 40 mg Rosuvastatin > than or = to 20 mg Amlodipine + Atorvastatin > than or = to 2.5/40 mg Ezetimibe + Simvastatin 10/80 mg Simvastatin 80mg Discharge Plan Admission Admit Date/Time: 06/23/24 17:10 Primary Reason for Your Visit: labor Attending Provider: Sarai Francis Primary Care Provider: Care Physician,Ximena Primary Discharge Orders/Prescriptions Prescriptions: New enoxaparin 40 mg/0.4 mL Syringe 40 mg subcut BID 7 Days Qty: 5.6 0RF Continued magnesium 200 mg tablet 400 mg PO DAILY PNV-DHA 27 mg iron-1 mg -300 mg capsule 1 cap PO DAILY Discontinued aspirin 81 mg tablet,delayed release (DR/EC) 81 mg PO DAILY Referrals / Follow Up: Care Physician,No Primary [Primary Care Provider] - Disposition Disposition (needs filled in before D/C Order can be placed): Home, Self Care
--- NOTE | 2024-06-28 09:20 | NURSING ---
Support person instructed on SQ injection and returned demonstration.
== END 2024-06-28 10:50 | disposition home or self-care (01) | DRG 807 ==
PROVIDERS: Obstetrics & Gynecology; Admitting Provider Obstetrics & Gynecology; Visit Provider Obstetrics & Gynecology
DX: O99.214 Obesity complicating childbirth (principal); Z37.0 Single live birth; O77.0 Labor and delivery complicated by meconium in amniotic fluid; O70.0 First degree perineal laceration during delivery; O86.4 Pyrexia of unknown origin following delivery; Z3A.39 39 weeks gestation of pregnancy
CPT/HCPCS: 59025; 59050; 71046; 74178; 80053; 81002; 83605; 83615; 85025; 86780; 86850; 86900; 86901; 87040; 87077; 87086; 87088; 87186; 99221; J7120; Q9967; A4216; G0378; J2405